=== PATIENT | male | born 1945 | race Hispanic/Latino ===

== ENCOUNTER 2019-12-24 09:46 | Outpatient (RCR) | payer MEDICARE, OTHER | END 2019-12-25 | LOC: PT 09:46 | PROVIDERS: ATTEND Specialist | DX: M75.42 Impingement syndrome of left shoulder (principal); M62.81 Muscle weakness (generalized); M25.512 Pain in left shoulder; M25.612 Stiffness of left shoulder, not elsewhere classified ==

== ENCOUNTER → 2020-06-25 | Outpatient (RCR) | payer MEDICARE, OTHER | LOC: PT 06-17 13:45 | PROVIDERS: ATTEND Specialist | DX: M75.42 Impingement syndrome of left shoulder (principal) ==

== ENCOUNTER 2020-07-23 09:00 | Outpatient (RCR) | payer MEDICARE, OTHER | END 2020-07-26 | LOC: PT 09:00 | PROVIDERS: ATTEND Specialist | DX: M75.42 Impingement syndrome of left shoulder (principal); M62.81 Muscle weakness (generalized); M25.512 Pain in left shoulder; M25.612 Stiffness of left shoulder, not elsewhere classified | CPT/HCPCS: 97139 ==

== ENCOUNTER 2020-08-22 08:56 | Outpatient (RCR) | payer MEDICARE, OTHER | END 2020-08-25 | LOC: PT 08:56 | PROVIDERS: ATTEND Specialist | DX: M75.42 Impingement syndrome of left shoulder (principal); M62.81 Muscle weakness (generalized); M25.512 Pain in left shoulder ==

== ENCOUNTER 2020-09-04 12:59 | Outpatient (RCR) | payer MEDICARE, OTHER | END 2020-09-25 | LOC: PT 12:59 | PROVIDERS: ATTEND Specialist | DX: M75.42 Impingement syndrome of left shoulder (principal); M62.81 Muscle weakness (generalized); M25.512 Pain in left shoulder ==